=== PATIENT | female | born 2000 | race Caucasian/White ===

== ENCOUNTER → 2024-09-03 08:00 | Outpatient (REF) | payer BC, SELFPAY ==
[2024-09-03 09:19] LABS: % Basophils 0.5 % (0-2); % Eosinophils 1.9 % (0-6); % Immature Granulocytes 0.3 % (0-0.5); % Lymphocytes 27.3 % (20.5-51.1); Absolute Eosinophils 0.2 10^3/uL (0-0.7); Absolute Lymphocytes 2.4 10^3/uL (1.2-3.4); Absolute Monocytes 0.6 10^3/uL (0.1-0.6); Absolute Neutrophils 5.5 10^3/uL (1.4-6.5); Hematocrit 37.4 % (37.0-47.0); Hemoglobin 13.1 g/dL (12.0-16.0); Mean Corpuscular Hgb 29.6 pg (27.0-31.0); Mean Corpuscular Volume 84.4 fL (81.0-99.0); Mean Platelet Volume 10.2 fL (7.4-10.4); Nucleated Red Blood Cells % 0 %; Platelet Count 238 10^3/uL (130-400); Red Blood Cell Count 4.43 10^6/uL (4.20-5.40); Red Cell Dist. Width 12.6 % (11.5-14.5); White Blood Cell Count 8.7 10^3/uL (4.8-10.8)
[2024-09-03 09:34] LABS: Urine Albumin Negative (Neg - Trace); Urine Bilirubin Negative (Negative); Urine Character Clear (Clear); Urine Color Yellow; Urine Glucose Negative (Negative); Urine Ketone 2+ (Negative); Urine Leukocyte 1+ (Negative); Urine Nitrite Negative (Negative); Urine Occult Blood Negative (Negative); Urine Specific Gravity 1.005 (<1.030); Urine Urobilinogen Negative (Neg - 1+)
[2024-09-03 10:15] LABS: Glycohemoglobin (HgbA1c) 4.5 % (4.0-5.6)
[2024-09-03 12:01] LABS: Urine Squamous Cell >30 /LPF (Few)
[2024-09-03 12:02] LABS: Urine Red Blood Cell 0-2 /HPF (0-2)
[2024-09-03 19:19] LABS: Hepatitis B Surface Antigen Negative (Negative)
[2024-09-03 19:38] LABS: Hepatitis B Core Ab, Total Negative (Negative); Hepatitis B Surface Antibody Negative; Hepatitis C Antibody Negative (Negative)
[2024-09-03 20:56] LABS: Rubella Positive
[2024-09-04 13:44] LABS: Syphilis/T. pallidum Ab Reflex Negative (Negative)
[2024-09-04 14:45] LABS: HIV Combo Negative (Negative)
== END ==
LOC: REG 08:00
PROVIDERS: ATTENDING PHYSICIAN Obstetrics & Gynecology
DX: Z32.00 Encounter for pregnancy test, result unknown (principal)
CPT/HCPCS: 36415; 81003; 81015; 83036; 84702; 85025; 86704; 86706; 86762; 86780; 86803; 86850; 86900; 86901; 87086; 87340; 87389

== ENCOUNTER → 2024-09-15 12:39 | Outpatient (REF) | payer BC, SELFPAY | LOC: RAD 12:39 | PROVIDERS: ATTENDING PHYSICIAN Obstetrics & Gynecology | DX: O36.80X0 Pregnancy with inconclusive fetal viability, not applicable or unspecified (principal) | CPT/HCPCS: 76801 ==

== ENCOUNTER 2024-09-18 06:18 | Day surgery (SDC) | payer BC, SELFPAY ==
[2024-09-18 10:10] VITALS: BMI 28.2
[2024-09-18 10:12] VITALS: BP 112/68; BMI 28.2
[2024-09-18] MEDS: NORMOSOL-R/PLASMALYTE-A 1000 IV (10:30)
[2024-09-18 10:43] LABS: Hematocrit 32.8 % (37.0-47.0); Hemoglobin 11.7 g/dL (12.0-16.0)
[2024-09-18] MEDS: VIBRAMYCIN 270 MG IV (10:45)
[2024-09-18 13:08] VITALS: BP 103/69; BP 112/68
[2024-09-18 13:15] VITALS: BP 116/72
[2024-09-18 13:30] VITALS: BP 109/70
[2024-09-18 13:34] VITALS: BP 108/70
[2024-09-18 14:00] VITALS: BP 108/66
== END 2024-09-18 14:25 | disposition home or self-care (01) ==
LOC: SDS 06:18
PROVIDERS: ATTENDING PHYSICIAN Obstetrics & Gynecology
DX: O02.1 Missed abortion (principal); Z3A.01 Less than 8 weeks gestation of pregnancy
CPT/HCPCS: 59820; 88305; 85014; 85018; 86850; 86900; 86901

== ENCOUNTER → 2025-01-23 07:37 | Outpatient (REF) | payer OTHER, SELFPAY ==
[2025-01-23 11:24] LABS: Beta HCG Quantitative 142860.00 mIU/ml
== END ==
LOC: REG 07:37
PROVIDERS: ATTENDING PHYSICIAN Obstetrics & Gynecology
DX: Z32.01 Encounter for pregnancy test, result positive (principal)
CPT/HCPCS: 36415; 84702

== ENCOUNTER → 2025-02-04 11:00 | Outpatient (REF) | payer OTHER, SELFPAY ==
[2025-02-04 12:01] LABS: Hematocrit 33.3 % (37.0-47.0); Hemoglobin 11.8 g/dL (12.0-16.0); Mean Corp Hgb Conc. 35.4 g/dL (33.0-37.0); Mean Corpuscular Volume 84.1 fL (81.0-99.0); Nucleated Red Blood Cells % 0 %; Platelet Count 217 10^3/uL (130-400); Red Cell Dist. Width 12.7 % (11.5-14.5)
[2025-02-04 13:10] LABS: Glycohemoglobin (HgbA1c) 4.7 % (4.0-5.9)
[2025-02-04 13:22] LABS: Urine Character Slightly Cloudy (Clear)
[2025-02-04 14:53] LABS: Hepatitis B Surface Antigen Negative (Negative)
[2025-02-04 14:58] LABS: Urine Squamous Cell >30 /LPF (Few); Urine Urothelial Cell 0-2 /LPF (FEW)
[2025-02-04 15:03] LABS: Urine Red Blood Cell 0-2 /HPF (0-2)
[2025-02-04 15:07] LABS: Beta HCG Quantitative > 3000000.00 mIU/ml
[2025-02-04 15:11] LABS: Hepatitis C Antibody Negative (Negative)
[2025-02-05 15:51] LABS: Syphilis/T. pallidum Ab Reflex Negative (Negative)
[2025-02-06 13:41] LABS: Capillary Hgb Electrophoresis Not Performed; Hemoglobin - Other 0.0 % (0.0-0.0); Sickle Cell Solubility Reflex Not Performed
== END ==
LOC: REG 11:00
PROVIDERS: ATTENDING PHYSICIAN Nurse Practitioner Family
DX: Z32.01 Encounter for pregnancy test, result positive (principal)
CPT/HCPCS: 36415; 81003; 81015; 83021; 83036; 84702; 85025; 86704; 86706; 86762; 86780; 86803; 86850; 86900; 86901; 87086; 87340; 87389

== ENCOUNTER → 2025-02-08 17:38 | Outpatient (REF) | payer OTHER, SELFPAY | LOC: RAD 17:38 | PROVIDERS: ATTENDING PHYSICIAN Student in an Organized Health Care Education/Training Program; FAMILY PHYSICIAN Physician Assistant Medical | DX: R10.20 Pelvic and perineal pain unspecified side (principal); O26.899 Other specified pregnancy related conditions, unspecified trimester | CPT/HCPCS: 76801 ==

== ENCOUNTER → 2025-03-04 11:13 | Outpatient (REF) | payer OTHER, SELFPAY | LOC: PNTC 11:13 | PROVIDERS: ATTENDING PHYSICIAN Obstetrics & Gynecology | DX: Z36.0 Encounter for antenatal screening for chromosomal anomalies (principal); Z36.82 Encounter for antenatal screening for nuchal translucency | CPT/HCPCS: 36415; 76801; 76813 ==